=== PATIENT | male | born 1990 | race Caucasian/White ===

== ENCOUNTER 2017-03-03 14:20 | Emergency (ER) | payer BC ==
--- NOTE | 2017-03-03 15:02 | RAD ---
RIGHT RIBS 3 VIEWS: Date: 03/03/17 HISTORY: Right chest wall injury. Worsening pain. FINDINGS: No comparison. No displaced rib fracture or pneumothorax are apparent. Dystrophic calcification projects over the ri ght axilla. IMPRESSION: No significant abnormalities are demonstrated. POS: [id number]
== END 2017-03-03 15:40 | disposition left against medical advice (07) ==
LOC: ERS 14:20
DX: Z53.21 Procedure and treatment not carried out due to patient leaving prior to being seen by health care provider (principal)

== ENCOUNTER 2017-11-20 08:04 | Emergency (ER) | payer BC, SELFPAY | END 2017-11-20 09:33 | disposition home or self-care (01) | LOC: ERS 08:04 | DX: J11.1 Influenza due to unidentified influenza virus with other respiratory manifestations (principal); F17.220 Nicotine dependence, chewing tobacco, uncomplicated | CPT/HCPCS: 87081; 87430; 99283 ==